=== PATIENT | male | born 1975 | race Caucasian/White ===

== ENCOUNTER 2020-05-04 05:28 | Day surgery (SDC) | payer MEDICAID ==
[~2020-05-04] VITALS: Ht 180.3 cm; Wt 115.7 kg
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
[~2020-05-04 05:28] MED LIST: GABAPENTIN300 MG PO
[2020-05-04 06:46] VITALS: BP 114/76; Ht 180.3 cm; Wt 115.7 kg
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
== END 2020-05-04 10:55 | disposition home or self-care (01) ==
LOC: D.OPS 05:28 → D.PAN 08:00 → D.OPS 10:55
PROVIDERS: ATTEND Podiatrist
DX: S92.341B Displaced fracture of fourth metatarsal bone, right foot, initial encounter for open fracture (principal)